=== PATIENT | female | born 1940 | race Caucasian/White ===

== ENCOUNTER 2017-06-23 10:35 | Emergency (ER) | payer OTHER ==
[~2017-06-23] VITALS: Ht 157.5 cm; Wt 90.9 kg
[~2017-06-23 10:35] MED LIST: ACCUPRIL20 MG PO; ALLEGRA30 MG PO; ALLEGRA60 MG PO; AMLODIPINE BESYL5 MG PO; ANUSOL1 SUPP PR; ASPIR 8181 M1 PO; ATENOLOL100 MG PO; ATENOLOL50 MG PO; ATORVASTATIN CA10 MG PO; BENTYL10 MG PO; CELEBREX200 MG PO; CEPHALEXIN500 MG PO; CORTISONE; CYMBALTA30 MG PO; DILAUDID2 MG PO; FLAGYL500 MG PO; FLEXERIL10 MG PO; FLONASE16 G1 BOTH NARES; FLORANEX CHE1 TABLET PO; FLUTICASONE PRO16 GM BOTH NARES; FUROSEMIDE20 MG PO; GAVISCON EXTRA355 ML PO; K-DUR20 MEQ PO; KLOR-CON M2020 MEQ PO; LIPITOR10 MG PO; LO-DOSE ASPIRIN81 M1 PO; LYRICA100 MG PO; MAALOX MAXIMUM355 ML PO; MEDROL DOSEPAK4 MG PO; MIRALAX17 GM PO; MIRALAX255 GM PO; NAPHAZOLINE HCL15 ML BOTH EYES; NEXIUM 24HR20 MG PO; NEXIUM40 MG PO; NORVASC5 MG PO; PREVACID30 MG PO; QUINAPRIL HCL20 MG PO; TENORMIN100 MG PO; TRAMADOL HCL50 MG PO; TUMS500 MG PO; ULTRAM50 MG PO; VOLTAREN 1% GE100 GM TP; ZADITOR 0.100 DROP/5 BOTH EYES; ZANTAC300 MG PO
[2017-06-23 11:47] LABS: HEMATOCRIT 35.7 % (36.0-46.0); MCH 30.1 PG (29.0-34.0); MCHC 33.3 G/DL (30.0-36.0); MCV 90.4 FL (83-99); MEAN PLAT.VOLUME 10.3 uM^3 (9.5-12.4); PLATELET COUNT 232 K/uL (156-360); RBC DIS.WIDTH-CV 13.7 % (11.8-14.6); RBC DIS.WIDTH-SD 45.3 % (39-53); RED BLOOD COUNT 3.95 M/uL (3.80-5.20); WHITE BLOOD COUNT 4.9 K/uL (4.1-10.2)
[2017-06-23 12:04] LABS: CHLORIDE 105 mEq/L (99-109); POTASSIUM 3.5 mEq/L (3.7-5.4); SODIUM 141 mEq/L (136-147)
[2017-06-23 12:05] LABS: GLUCOSE 190 mg/dL (70-99)
[2017-06-23 12:07] LABS: ANION GAP 12 MEQ/L (2-14)
[2017-06-23 12:09] LABS: GFR ESTIMATE (CALCULATED) > 59 mL/min/
[2017-06-23 12:10] LABS: UREA NITROGEN (BUN) 16 mg/dL (9-23)
[2017-06-23 13:20] VITALS: BP 133/87
== END 2017-06-23 13:53 | disposition home or self-care (01) ==
LOC: EME 10:35
PROVIDERS: Emergency Medicine
PROC: 2Y41X5Z Packing of Nasal Region using Packing Material (ICD-10-PCS; principal; 2017-06-23)
DX: R04.0 Epistaxis (principal); J06.9 Acute upper respiratory infection, unspecified; R11.0 Nausea; R42 Dizziness and giddiness; Z79.82 Long term (current) use of aspirin; I10 Essential (primary) hypertension; E78.5 Hyperlipidemia, unspecified
CPT/HCPCS: 80048; 85027; 93005

== ENCOUNTER 2017-09-30 19:01 | Inpatient (IN) | payer OTHER ==
[~2017-09-30] VITALS: Ht 157.5 cm; Wt 94.3 kg
[2017-09-30 19:58] LABS: ALBUMIN 4.2 g/dL (3.2-4.8); CHLORIDE 98 mEq/L (99-109); HEMATOCRIT 35.3 % (36.0-46.0); HEMOGLOBIN 11.6 G/DL (11.9-15.5); MCH 26.9 PG (29.0-34.0); MCHC 32.9 G/DL (30.0-36.0); PLATELET COUNT 206 K/uL (156-360); POTASSIUM 3.5 mEq/L (3.7-5.4); RBC DIS.WIDTH-CV 14.1 % (11.8-14.6); RBC DIS.WIDTH-SD 41.8 % (39-53); RED BLOOD COUNT 4.32 M/uL (3.80-5.20); SODIUM 135 mEq/L (136-147); WHITE BLOOD COUNT 13.3 K/uL (4.1-10.2)
[2017-09-30 20:00] LABS: GLUCOSE 119 mg/dL (70-99)
[2017-09-30 20:01] LABS: MCV 81.7 FL (83-99); TOTAL PROTEIN 6.9 g/dL (6.4-8.3)
[2017-09-30 20:02] LABS: TOTAL BILIRUBIN 0.7 mg/dL (0.0-1.0)
[2017-09-30 20:04] LABS: ALKALINE PHOSPHATASE 159 IU/L (3-129); GFR ESTIMATE (CALCULATED) 57 mL/min/
[2017-09-30 20:05] LABS: UREA NITROGEN (BUN) 17 mg/dL (9-23)
[2017-09-30 20:06] LABS: AST (GOT) 28 IU/L (2-34)
[2017-09-30 20:07] LABS: ALT (GPT) 22 IU/L (3-49)
[2017-09-30 20:23] LABS: BASOPHIL (%) 0.2 % (0-1); EOSINOPHIL (%) 0.1 % (0-5); IMMATURE GRANULOCYTE (%) 0.4 % (0.0-0.7); LYMPHOCYTE (%) 8.4 % (15-42); LYMPHOCYTE COUNT 1.1 K/uL (1.0-2.8); MONOCYTE (%) 8.4 % (3-12); MONOCYTE COUNT 1.1 K/uL (0-0.8); NEUTROPHIL (%) 82.5 % (45-76); NEUTROPHIL COUNT 11.1 K/uL (1.8-6.4)
[2017-09-30 21:52] LABS: APPEARANCE CLOUDY ((CLEAR)); BILIRUBIN NEGATIVE; BLOOD MODERATE; COLOR YELLOW ((YELLOW)); GLUCOSE (STRIP) NEGATIVE; KETONES NEGATIVE; LEUKOCYTES LARGE; NITRITE NEGATIVE; PROTEIN (STRIP) 30; SPECIFIC GRAVITY 1.013 (1.000-1.030); UROBILINOGEN 0.2 MG/DL (0.2-1.0)
[2017-09-30] MEDS ORDERED: POTASSIUM CHLO20 ME1 PO (21:53)
[2017-09-30] MEDS ORDERED: OMEPRAZOLE20 MG PO (21:55)
[2017-09-30] MEDS ORDERED: RANITIDINE HCL300 M1 PO (21:56)
[2017-09-30] MEDS ORDERED: DULOXETINE HCL30 MG PO (21:58)
[2017-09-30] MEDS ORDERED: QUINAPRIL HCL20 MG PO (21:58)
[2017-09-30] MEDS ORDERED: VITAMIN B122500 MCG PO (22:15)
[2017-09-30] MEDS ORDERED: CALCIUM500 M4 PO (22:15)
[2017-09-30] MEDS ORDERED: PROBIOTIC1 EAC3 PO (22:17)
[2017-09-30] MEDS ORDERED: CRANBERRY TABL1 EACH PO (22:18)
[2017-09-30] MEDS ORDERED: LYRICA100 MG PO (22:20)
[2017-09-30] MEDS ORDERED: TYLENOL ARTHRI650 MG PO (22:23)
[2017-09-30 22:46] LABS: EPITHELIAL CELLS 1+ /HPF; RED BLOOD CELLS RARE /HPF (0-5); WHITE BLOOD CELLS TNTC /HPF (0-5)
[2017-09-30 22:47] LABS: BACTERIA 2+ /HPF; MUCUS NONE SEEN /LPF; UCUL ADDED? YES
[2017-10-01] VITALS (7 sets, daily range): BP systolic 136–160; BP diastolic 67–81
[2017-10-01 05:33] LABS: HEMOGLOBIN 10.7 G/DL (11.9-15.5); MCHC 32.4 G/DL (30.0-36.0); MCV 83.1 FL (83-99); PLATELET COUNT 169 K/uL (156-360); RBC DIS.WIDTH-CV 14.6 % (11.8-14.6); RBC DIS.WIDTH-SD 43.8 % (39-53); RED BLOOD COUNT 3.97 M/uL (3.80-5.20); WHITE BLOOD COUNT 9.5 K/uL (4.1-10.2)
[2017-10-01 05:49] LABS: CHLORIDE 104 MEQ/L (99-109); CREATININE 0.9 MG/DL (0.6-1.3); GFR ESTIMATE (CALCULATED) > 59 mL/min/; GLUCOSE 122 mg/dL (70-99); POTASSIUM 3.2 MEQ/L (3.7-5.4); SODIUM 140 MEQ/L (136-147); UREA NITROGEN (BUN) 12 mg/dL (9-23)
[2017-10-01 08:12] LABS: INTER. NORMALIZED RATIO 1.1
[2017-10-01 08:15] LABS: PTT 29.1 SEC (25-37)
[2017-10-01 11:36] LABS: STOOL OCCULT BLD 1ST SPECIMEN POSITIVE
[2017-10-01 13:12] LABS: HEMOGLOBIN 10.6 G/DL (11.9-15.5); MCH 26.6 PG (29.0-34.0); MCHC 32.1 G/DL (30.0-36.0); MCV 82.9 FL (83-99); PLATELET COUNT 165 K/uL (156-360); RBC DIS.WIDTH-CV 14.5 % (11.8-14.6); RED BLOOD COUNT 3.98 M/uL (3.80-5.20); WHITE BLOOD COUNT 8.4 K/uL (4.1-10.2)
[2017-10-01 19:27] LABS: HEMOGLOBIN 11.1 G/DL (11.9-15.5); MCH 26.3 PG (29.0-34.0); MCHC 31.7 G/DL (30.0-36.0); MCV 82.9 FL (83-99); PLATELET COUNT 179 K/uL (156-360); RBC DIS.WIDTH-CV 14.6 % (11.8-14.6); RBC DIS.WIDTH-SD 44.3 % (39-53); RED BLOOD COUNT 4.22 M/uL (3.80-5.20); WHITE BLOOD COUNT 9.4 K/uL (4.1-10.2)
[2017-10-01 21:45] LABS: C DIFF TOXIN NEGATIVE (NEGATIVE)
[2017-10-02 05:47] LABS: HEMATOCRIT 33.8 % (36.0-46.0); HEMOGLOBIN 10.7 G/DL (11.9-15.5); MCH 26.6 PG (29.0-34.0); MCHC 31.7 G/DL (30.0-36.0); MCV 83.9 FL (83-99); PLATELET COUNT 172 K/uL (156-360); RBC DIS.WIDTH-CV 14.8 % (11.8-14.6); RBC DIS.WIDTH-SD 45.2 % (39-53); RED BLOOD COUNT 4.03 M/uL (3.80-5.20); WHITE BLOOD COUNT 7.9 K/uL (4.1-10.2)
[2017-10-02 05:58] LABS: HEMATOCRIT 37.5 % (36.0-46.0); HEMOGLOBIN 12.1 G/DL (11.9-15.5); MCV 82.4 FL (83-99)
[2017-10-02 06:04] LABS: INTER. NORMALIZED RATIO 1.1
[2017-10-02 06:30] LABS: CHLORIDE 106 MEQ/L (99-109); CREATININE 0.8 MG/DL (0.6-1.3); GFR ESTIMATE (CALCULATED) > 59 mL/min/; GLUCOSE 108 mg/dL (70-99); SODIUM 142 MEQ/L (136-147); UREA NITROGEN (BUN) 8 mg/dL (9-23)
[2017-10-02 07:30] VITALS: BP 138/76
[2017-10-02 11:01] VITALS: BP 140/80
[2017-10-02 16:17] VITALS: BP 140/63
[2017-10-02 23:43] VITALS: BP 169/72
[2017-10-03 05:50] LABS: BASOPHIL (%) 0.4 % (0-1); EOSINOPHIL (%) 0.9 % (0-5); EOSINOPHIL COUNT 0.1 K/uL (0-0.3); HEMATOCRIT 32.4 % (36.0-46.0); HEMOGLOBIN 10.3 G/DL (11.9-15.5); IMMATURE GRANULOCYTE (%) 0.2 % (0.0-0.7); LYMPHOCYTE (%) 16.4 % (15-42); LYMPHOCYTE COUNT 0.9 K/uL (1.0-2.8); MCH 26.5 PG (29.0-34.0); MCHC 31.8 G/DL (30.0-36.0); MCV 83.3 FL (83-99); MONOCYTE (%) 9.7 % (3-12); MONOCYTE COUNT 0.5 K/uL (0-0.8); NEUTROPHIL (%) 72.4 % (45-76); NEUTROPHIL COUNT 3.9 K/uL (1.8-6.4); PLATELET COUNT 164 K/uL (156-360); RBC DIS.WIDTH-CV 14.6 % (11.8-14.6); RBC DIS.WIDTH-SD 44.4 % (39-53); RED BLOOD COUNT 3.89 M/uL (3.80-5.20); WHITE BLOOD COUNT 5.4 K/uL (4.1-10.2)
[2017-10-03 06:12] LABS: CHLORIDE 103 MEQ/L (99-109); CREATININE 0.8 MG/DL (0.6-1.3); GFR ESTIMATE (CALCULATED) > 59 mL/min/; GLUCOSE 121 mg/dL (70-99); POTASSIUM 3.3 MEQ/L (3.7-5.4); SODIUM 142 MEQ/L (136-147); UREA NITROGEN (BUN) 9 mg/dL (9-23)
[2017-10-03 07:25] VITALS: BP 166/98
[2017-10-03 10:45] VITALS: BP 158/84
[2017-10-03 14:04] LABS: HEMATOCRIT 33.7 % (36.0-46.0); HEMOGLOBIN 10.6 G/DL (11.9-15.5); MCHC 31.5 G/DL (30.0-36.0); MCV 82.6 FL (83-99); PLATELET COUNT 207 K/uL (156-360); RBC DIS.WIDTH-CV 14.6 % (11.8-14.6); RBC DIS.WIDTH-SD 43.9 % (39-53); RED BLOOD COUNT 4.08 M/uL (3.80-5.20); WHITE BLOOD COUNT 5.8 K/uL (4.1-10.2)
[2017-10-03 16:14] VITALS: BP 152/72
[2017-10-03 23:08] VITALS: BP 152/82
[2017-10-04 06:30] LABS: BASOPHIL (%) 0.5 % (0-1); EOSINOPHIL (%) 2.3 % (0-5); EOSINOPHIL COUNT 0.1 K/uL (0-0.3); HEMATOCRIT 32.8 % (36.0-46.0); HEMOGLOBIN 10.3 G/DL (11.9-15.5); IMMATURE GRANULOCYTE (%) 0.3 % (0.0-0.7); LYMPHOCYTE (%) 26.4 % (15-42); MCHC 31.4 G/DL (30.0-36.0); MCV 82.8 FL (83-99); MONOCYTE (%) 12.5 % (3-12); MONOCYTE COUNT 0.5 K/uL (0-0.8); NEUTROPHIL COUNT 2.2 K/uL (1.8-6.4); PLATELET COUNT 192 K/uL (156-360); RBC DIS.WIDTH-CV 14.6 % (11.8-14.6); RBC DIS.WIDTH-SD 44.1 % (39-53); RED BLOOD COUNT 3.96 M/uL (3.80-5.20); WHITE BLOOD COUNT 3.8 K/uL (4.1-10.2)
[2017-10-04 07:02] LABS: CHLORIDE 103 MEQ/L (99-109); CREATININE 0.9 MG/DL (0.6-1.3); GFR ESTIMATE (CALCULATED) > 59 mL/min/; GLUCOSE 124 mg/dL (70-99); POTASSIUM 3.3 MEQ/L (3.7-5.4); SODIUM 142 MEQ/L (136-147); UREA NITROGEN (BUN) 7 mg/dL (9-23)
[2017-10-04 07:44] VITALS: BP 140/87
[2017-10-04] MEDS ORDERED: CIPROFLOXACIN500 M1 PO (08:44)
[2017-10-04] MEDS ORDERED: POTASSIUM CHLO20 ME1 PO (08:46)
[2017-10-04 10:39] LABS: C DIFF TOXIN ND (NEGATIVE)
== END 2017-10-04 20:36 | disposition home or self-care (01) | DRG 392 ==
LOC: EME 19:01 → EDOF 22:14 → 3EAST 22:14 → ENRESERV 22:16 → 3EAST 23:48
PROVIDERS: Family Medicine Sports Medicine; Hospitalist; Physician Assistant; Specialist
PROC: 2Y41X5Z Packing of Nasal Region using Packing Material (ICD-10-PCS; principal; 2017-10-02)
DX: K52.9 Noninfective gastroenteritis and colitis, unspecified (principal); N30.00 Acute cystitis without hematuria; R04.0 Epistaxis; E87.6 Hypokalemia; D64.9 Anemia, unspecified; E11.9 Type 2 diabetes mellitus without complications; E78.5 Hyperlipidemia, unspecified; I10 Essential (primary) hypertension; F32.9 Major depressive disorder, single episode, unspecified; J45.909 Unspecified asthma, uncomplicated; K21.9 Gastro-esophageal reflux disease without esophagitis; M06.9 Rheumatoid arthritis, unspecified; G89.29 Other chronic pain; M54.5 Low back pain; M54.2 Cervicalgia; K57.90 Diverticulosis of intestine, part unspecified, without perforation or abscess without bleeding; K76.0 Fatty (change of) liver, not elsewhere classified; E66.9 Obesity, unspecified; Z68.38 Body mass index [BMI] 38.0-38.9, adult; Z79.82 Long term (current) use of aspirin; Z86.010 Personal history of colon polyps; Z88.1 Allergy status to other antibiotic agents
CPT/HCPCS: 74177; 80048; 80053; 81003; 82272; 83605; 85014; 85018; 85025; 85027; 85610; 85730; 86850; 86900; 86901; 86920; 87077; 87086; 87177; 87186; 87329; 87493; 87506; 99281; 99285; J0744; J1650; J2270; J2405; J3480; J7030; J7040; J7120; S0028; S0030